=== PATIENT | female | born 1980 | race Caucasian/White ===

== ENCOUNTER 2022-01-26 09:33 | Emergency (ER) | payer MEDICAID ==
[~2022-01-26] VITALS: Ht 165.1 cm; Wt 64.0 kg
[2022-01-26 10:20] VITALS: BP 128/68
[2022-01-26] MEDS ORDERED: LEVO125T95 PO (10:26)
[2022-01-26] MEDS ORDERED: KETOROLAC TROMETHAMINE 60 MG/2 ML VIAL IM ONE (12:00)
[2022-01-26] MEDS ORDERED: IBUP-2070 PO (13:22)
== END 2022-01-26 13:37 | disposition home or self-care (01) ==
LOC: EMS 09:43
DX: R07.89 Other chest pain (principal); M79.642 Pain in left hand; E03.9 Hypothyroidism, unspecified; V49.49XA Driver injured in collision with other motor vehicles in traffic accident, initial encounter; Y93.89 Activity, other specified; Y92.89 Other specified places as the place of occurrence of the external cause; Y99.8 Other external cause status
CPT/HCPCS: 71045; 96372; 99284; J1885